=== PATIENT | male | born 1960 | race Caucasian/White ===

== ENCOUNTER → 2020-07-30 | Outpatient (CLI) | payer BC, OTHER ==
[~2020-07-30] MED LIST: ASPIRIN 325MG325 MG PO; CRESTOR20 MG PO; FLOMAX 0.4 MG0.4 MG PO; HYDROCHLOROTH12.5 M1 PO; LOPRESSOR 50 MG50 MG PO; NORCO 10-325 T1 EACH PO; NORVASC 5 MG TAB5 MG PO
[2020-07-30 08:45] LABS: HEMOGLOBIN 14.3 gm/dl (14.0-17.5); RED BLOOD COUNT 4.98 M/UL (4.20-5.50); WHITE BLOOD COUNT 6.4 K/UL (4.5-11.0)
[2020-07-30 10:01] LABS: BUN/CREATININE RATIO 17 (0-10)
== END ==
LOC: LAB 08:21
PROVIDERS: Physician Assistant
DX: I25.10 Atherosclerotic heart disease of native coronary artery without angina pectoris (principal); I25.118 Atherosclerotic heart disease of native coronary artery with other forms of angina pectoris
CPT/HCPCS: 36415; 80053; 80061; 85025

== ENCOUNTER → 2021-08-11 | Outpatient (CLI) | payer BC ==
[2021-08-11 10:11] LABS: BUN/CREATININE RATIO 17 (0-10)
== END ==
LOC: LAB 08:44
PROVIDERS: Family Medicine
DX: M1A.00X0 Idiopathic chronic gout, unspecified site, without tophus (tophi) (principal); E78.5 Hyperlipidemia, unspecified
CPT/HCPCS: 36415; 80053; 80061; 84550

== ENCOUNTER → 2021-11-17 | Outpatient (CLI) | payer BC | LOC: KOH-I 13:51 | DX: Z87.891 Personal history of nicotine dependence (principal) | CPT/HCPCS: 71271 ==

== ENCOUNTER → 2021-12-23 | Outpatient (CLI) | payer BC ==
[2021-12-23 08:49] LABS: BUN/CREATININE RATIO 17 (0-10)
== END ==
LOC: LAB 07:57
PROVIDERS: Family Medicine
DX: I25.10 Atherosclerotic heart disease of native coronary artery without angina pectoris (principal); R39.12 Poor urinary stream
CPT/HCPCS: 80053; 80061; 84153